=== PATIENT | female | born 1980 | race American Indian/Alaskan Native ===

== ENCOUNTER 2016-05-04 10:13 | Emergency (ER) | payer MEDICAID, OTHER ==
[2016-05-04 10:50] VITALS: BP 123/80
--- NOTE | 2016-05-04 11:41 | Emergency Department Report ---
ED General Adult HPI - General Chief complaint: Earache Stated complaint: R EAR IS HURTING Time Seen by Provider: 05/04/16 11:17 Source: patient Mode of arrival: Ambulatory Limitations: No Limitations - History of Present Illness Initial comments: 36-year-old female presents to the ED complaining about right-sided earache with dental pain associated. Patient states pain is aching and radiating. Denies swelling or pus drainage. Denies taking any medication. Denies fever. - Related Data Previous Rx's Medication Instructions Recorded Last Taken Type Acetaminophen with Codeine 120 ml PO Q6H #120 elixir 01/24/14 Unknown Rx [Acetaminophen-Codeine ORAL LIQ] Clindamycin [Clindamycin CAP] 300 mg PO Q8H 10 Days 01/24/14 Unknown Rx Nitrofurantoin [place]/M-Cryst 100 mg PO Q12HR #14 capsule 01/24/14 Unknown Rx [Macrobid] Promethazine [Phenergan] 25 mg OR Q6HR PRN #10 supp.rect 01/24/14 Unknown Rx Amoxicillin 500 mg PO TID #21 capsule 05/04/16 Unknown Rx Ibuprofen [Motrin] 600 mg PO Q8H PRN #20 tablet 05/04/16 Unknown Rx Allergies Allergy/AdvReac Type Severity Reaction Status Date / Time No Known Allergies Allergy Verified 01/24/14 07:46 ED Review of Systems ROS: Stated complaint: R EAR IS HURTING Other details as noted in HPI Constitutional: denies: chills, fever Eyes: denies: eye pain, eye discharge, vision change ENT: ear pain, dental pain. denies: throat pain Respiratory: denies: cough, shortness of breath, wheezing Cardiovascular: denies: chest pain, palpitations Endocrine: no symptoms reported Gastrointestinal: denies: abdominal pain, nausea, diarrhea Genitourinary: denies: urgency, dysuria, discharge Musculoskeletal: denies: back pain, joint swelling, arthralgia Skin: denies: rash, lesions Neurological: denies: headache, weakness, paresthesias Psychiatric: denies: anxiety, depression Hematological/Lymphatic: denies: easy bleeding, easy bruising ED Past Medical Hx - Past Medical History Previous Medical History?: No - Surgical History Past Surgical History?: No - Social History Smoking Status: Never Smoker Substance Use Type: None - Medications Home Medications: Home Medications Medication Instructions Recorded Confirmed Last Taken Type Acetaminophen with Codeine 120 ml PO Q6H #120 elixir 01/24/14 Unknown Rx [Acetaminophen-Codeine ORAL LIQ] Clindamycin [Clindamycin CAP] 300 mg PO Q8H 10 Days 01/24/14 Unknown Rx Nitrofurantoin [place]/M-Cryst 100 mg PO Q12HR #14 capsule 01/24/14 Unknown Rx [Macrobid] Promethazine [Phenergan] 25 mg OR Q6HR PRN #10 supp.rect 01/24/14 Unknown Rx Amoxicillin 500 mg PO TID #21 capsule 05/04/16 Unknown Rx Ibuprofen [Motrin] 600 mg PO Q8H PRN #20 tablet 05/04/16 Unknown Rx ED Physical Exam - General Limitations: No Limitations General appearance: alert, in no apparent distress - Head Head exam: Present: atraumatic, normocephalic - Eye Eye exam: Present: normal appearance - ENT ENT exam: Present: normal orophraynx (tenderness palpation of the teeth around the right mandible.), mucous membranes moist, TM's normal bilaterally, normal external ear exam, other - Neck Neck exam: Present: normal inspection - Respiratory Respiratory exam: Present: normal lung sounds bilaterally. Absent: respiratory distress - Cardiovascular Cardiovascular Exam: Present: regular rate, normal rhythm. Absent: systolic murmur, diastolic murmur, rubs, gallop - GI/Abdominal GI/Abdominal exam: Present: soft, normal bowel sounds - Extremities Exam Extremities exam: Present: normal inspection - Back Exam Back exam: Present: normal inspection. Absent: paraspinal tenderness - Neurological Exam Neurological exam: Present: alert, oriented X3 - Psychiatric Psychiatric exam: Present: normal affect, normal mood - Skin Skin exam: Present: warm, dry, intact, normal color. Absent: rash ED Course Vital Signs 05/04/16 10:49 Temperature 98 F Pulse Rate 60 Respiratory 16 Rate Blood Pressure 123/80 O2 Sat by Pulse 100 Oximetry Critical care attestation.: If time is entered above; I have spent that time in minutes in the direct care of this critically ill patient, excluding procedure time. ED Disposition Clinical Impression: Pain, dental, Earache, right Disposition: DISCHARGED TO HOME OR SELFCARE Is pt being admited?: No Does the pt Need Aspirin: No Condition: Good Instructions: Dental Caries (ED), Toothache (ED) Prescriptions: Amoxicillin 500 mg PO TID #21 capsule Ibuprofen [Motrin] 600 mg PO Q8H PRN #20 tablet PRN Reason: Pain Referrals: PRIMARY CARE, [Primary Care Provider] - 3-5 Days Forms: Work/School Release Form(ED) Time of Disposition: 11:44
== END 2016-05-04 12:09 | disposition home or self-care (01) ==
LOC: ED 10:13
DX: H92.01 Otalgia, right ear (principal); K08.89 Other specified disorders of teeth and supporting structures
CPT/HCPCS: 99281